=== PATIENT | male | born 1965 | race African-American/Black ===

== ENCOUNTER 2021-10-20 04:02 | Emergency (ER) | payer OTHER ==
[~2021-10-20] VITALS: Ht 170.2 cm; Wt 79.4 kg
[2021-10-20 04:05] VITALS: BP 183/115
--- NOTE | 2021-10-20 04:14 | NUR ---
Patient ambulated to bed 3
[2021-10-20] MEDS ORDERED: CLONIDINE HYDROCHLORIDE 0.1 MG TAB PO ONE ×2 (04:35→05:20)
--- NOTE | 2021-10-20 04:40 | NUR ---
56/M BIB SELF C/O HIGH BLOOD PRESSURE TODAY. PATIENT REPORTED SEEING PCP AND BEING DX WITH HTN WITH A PRESCRIPTION. PATIENT STATED HE TOOK BP 170/101. PATIENT RR EVEN AND UNLABORED. SKIN WARM TO TOUCH. PATIENT DENIES BLURRY VISION/[place]/N/V/D/C/SOB/CP. PATIENT BED LOW IN LOWEST POSITION AND LOCKED. PATIENT BP 174/107 (142). MD AWARE. ORDERS CARRIED OUT. PMHX HTN, ALLERGIES MEDS AMLODIPINE 5MG NKA
--- NOTE | 2021-10-20 04:45 | NUR ---
PATIENT AMBULATED TO THE AND BACK TO BED 3
--- NOTE | 2021-10-20 04:50 | NUR ---
LAB COLLECTED AND HANDED TO LAB
--- NOTE | 2021-10-20 05:17 | NUR ---
LORNA AMBULATED TO THE AND BACK TO BED 3
--- NOTE | 2021-10-20 05:20 | NUR ---
PATIENT BP DECREASED TO 146/105. MADE AWARE.
[2021-10-20] MEDS ORDERED: HYDR-2853 PO (05:22)
--- NOTE | 2021-10-20 05:35 | NUR ---
MD REYES AT BEDSIDE
--- NOTE | 2021-10-20 05:40 | NUR ---
Written and verbal after care instructions given of hypertension and explained. Patient alert, oriented and verbalized understanding of instructions given by MD. Ambulatory with steady gait. ID band removed. Patient advised to follow up with PMD. Rx of Lisinopril given. Patient educated on indication of medication including possible reaction and side effects by MD Mulligan.
--- NOTE | 2021-10-20 05:41 | NUR ---
Chart checked and completed.
[2021-10-20 05:42] VITALS: BP 146/105
[2021-10-20 05:48] LABS: BASOPHILS % (AUTO) 0.5 % (0.0-2.0); EOSINOPHILS # (AUTO) 0.1 K/uL (0-0.4); EOSINOPHILS % (AUTO) 1.7 % (0.0-4.0); HEMATOCRIT 47.9 % (36-52); HEMOGLOBIN 16.3 g/dL (12.0-18.0); LYMPHOCYTES # (AUTO) 1.6 K/uL (2.0-11.5); LYMPHOCYTES % (AUTO) 19.8 % (20.5-51.1); MEAN CORPUSCULAR HEMOGLOBIN 32 pg (27-31); MEAN CORPUSCULAR HGB CONC 34 g/dL (33-37); MEAN CORPUSCULAR VOLUME 93.1 fL (80-94); MONOCYTES # (AUTO) 0.3 K/uL (0.8-1.0); MONOCYTES % (AUTO) 4.4 % (1.7-9.3); NEUTROPHILS # (AUTO) 5.9 K/uL (1.8-7.7); NEUTROPHILS % (AUTO) 73.6 % (42.2-75.2); PLATELET COUNT (AUTO) 223 K/uL (140-450); RED BLOOD CELL COUNT(AUTO) 5.15 MIL/uL (4.20-6.10); RED CELL DISTRIBUTION WIDTH 13.1 % (11.6-13.7); WHITE BLOOD COUNT (AUTO) 7.9 K/uL (4.8-10.8)
[2021-10-20 06:01] LABS: ALBUMIN 4.3 g/dL (3.4-5.0); ANION GAP 9.6 (8-16); CARBON DIOXIDE 31.2 mmol/L (21-32); POTASSIUM 3.8 mmol/L (3.5-5.1); TOTAL BILIRUBIN 1.3 mg/dL (0.0-1.0)
== END 2021-10-20 05:40 | disposition home or self-care (01) ==
LOC: MED 04:02
DX: I10 Essential (primary) hypertension (principal)
CPT/HCPCS: 36415; 80053; 85025; 99283